=== PATIENT | female | born 1965 | race Caucasian/White ===

== ENCOUNTER 2021-07-05 07:36 | Outpatient (RCR) | payer MEDICARE, BC, SELFPAY ==
--- NOTE | 2021-07-05 08:36 | OTOPEVAL ---
OCCUPATIONAL THERAPY INITIAL EVALUATION 07/05/21 Thank you for referring Narciso Parmar to [facility].? The patient is scheduled to be seen for therapy? 2x/week for 4 weeks. Please review, sign, date and return this plan of care BRENDA. I agree with and certify that the following plan of care is medically necessary. Referring Physician Date Referring Provider: Trevor Bowen, PA *OT Outpatient Evaluation Start: 07/05/21 07:45 Outpatient Past Medical History Past Medical History No Past Medical/Surgical History Patient/Family Denies Significant Past Medical/ Surgical History Evaluation Information Problem Diagnosis Revision right carpal tunnel release, Right thumb CMC arthroplasty Onset 04/17/21 Subjective Information Patient reports very limited Query Text:As Reported By Patient/ right hand use. States she has Family to start her car with the left hand. She states she has pain and weakness that limits her ability to use the right hand for cooking, cleaning, and ADLs. Prior Level of Function Activity Level (Last 3 Months) Occupation Not working right now Hand Dominance Right Activity of Daily Living Ability Independent Indoor/Home Mobility Independent Cooking Yes Cleaning Yes Laundry Yes Shopping Yes Driving Yes Pain Assessment Timing of Pain Assessment Timing of Pain Assessment Assessment Pain Scale Pain Scale Used Numeric (1 - 10) Self Report Pain Assessment Right Hand(s) Reported Pain Level 5 Pain Description Aching Pain Frequency Continuous Lowest Pain Intensity 3 Greatest Pain Intensity 10 Pain Score Pain Score 5: Self Report Interventions Used Interventions Used By Clinicians Education,Exercise Pain Relief Interventions Used By Heat Patient Other Alleviating Interventions Patient uses an scott wrap for pain relief. Upper Extremity Range of Motion Wrist Range of Motion Left Wrist Flexion - Active 60 Wrist Extension - Active 55 Wrist Radial Deviation - Active 25 Wrist Ulnar Deviation - Active 30 Right Wrist Flexion - Active 60 Wrist Extension - Active 50 Wrist Radial Deviation - Active 15 Wrist Ulnar Deviation - Active 30 Finger Range of Motion Left Reason Not Measured WNL/Left R
--- NOTE | 2021-07-09 08:37 | PCOTNOTE ---
Patient did not show up for scheduled appointment this date. Called and left voicemail regarding pt's next appt.
--- NOTE | 2021-07-12 08:33 | PCOTNOTE ---
Patient did not show up for scheduled appointment this date. Called to remind her of her appt on Friday. Also informed her that this is her 2nd no show and that she will be discharged if she does not show on Friday.
--- NOTE | 2021-07-16 08:26 | PCOTNOTE ---
OCCUPATIONAL THERAPY DISCHARGE NOTIFICATION 07/16/21 Patient:Narciso Parmar Date of :1965 Patient has not returned for any further treatments since her initial evaluation on 07/05/2021, therefore she will be discharged at this time. Patient?s initial visit was on 07/05/2021 and she had a total of 0 follow up visits. Multiple attempts to contact the patient have been unsuccessful. The goals have been not addressed. Thank you for referring this patient to [facility]. Please review, sign, date and return this discharge summary BRENDA. I have been updated about the patient's current status and I agree with discharge from the above service at this time. Referring Physician Date Referring Provider: Trevor Bowen, CAROLANN
== END 2021-07-16 17:37 | disposition home or self-care (01) ==
LOC: ANHOT 07:36
PROVIDERS: Visit Provider Physician Assistant
DX: Z47.89 Encounter for other orthopedic aftercare (principal); L03.818 Cellulitis of other sites
CPT/HCPCS: 97018; 97110; 97165

== ENCOUNTER 2023-05-15 15:56 | Outpatient (CLI) | payer MEDICARE, SELFPAY ==
--- NOTE | ~2023-05-15 | XR_ITS ---
EXAMINATION: XR foot RT min 3V DATE: 05/15/2023 16:23 INDICATION: Right foot injury. TECHNIQUE: 4 views of right foot were obtained. COMPARISON: None. FINDINGS: Bone alignment is normal. No fracture. There is mild osteoarthritis of first metatarsophala ngeal joint and some of the interphalangeal joints and midfoot joints. There is an enthesophyte at pl david aspect of calcaneal tuberosity. IMPRESSION: 1. Mild polyarticular osteoarthritis. Reviewed, dictated and finalized at location E.
== END 2023-05-15 15:57 | disposition home or self-care (01) ==
LOC: CHSIMG 16:08
DX: S99.921A Unspecified injury of right foot, initial encounter (principal); M19.071 Primary osteoarthritis, right ankle and foot
CPT/HCPCS: 73630

== ENCOUNTER 2023-05-28 14:33 | Emergency (ER) | payer MEDICARE, SELFPAY ==
[2023-05-28] VITALS (27 sets, daily range): BP systolic 101–127; BP diastolic 58–97; PULSE 63–85; RESP 12–21; TEMP 36.2–37; O2SAT 93–100
--- NOTE | ~2023-05-28 | CT_ITS ---
EXAMINATION: CT abdomen pelvis w con DATE: 05/28/2023 16:42 INDICATION: Epigastric abdominal pain. TECHNIQUE: Computed tomography (CT) of the abdomen and pelvis was performed with 100 mL Omnipaque 350 intravenous contrast. Automated exposure control and iterative reconstruction technique were employe d. The dose-length product was 1064.11 mGy-cm. COMPARISON: CT abdomen 09/29/14 FINDINGS: The visualized portions of the lung bases demonstrate mild atelectasis. A calcified left halle ng nodule is consistent with old granulomatous disease. No pleural effusion. The heart size is normal . No pericardial effusion. The liver is normal. The spleen is absent. The gallbladder is absent. The pancreas is normal. The adrenal glands and kidneys are normal. There are no dilated loops of bowel. T here is diverticulosis of the colon without evidence of diverticulitis. The pancreas is not visualize d. There is mild aortic atherosclerosis. There are surgical changes in the stomach. There are no path ologically enlarged lymph nodes. There is no free intraperitoneal fluid. There is mild thoracic and l umbar spondylosis. IMPRESSION: 1. No etiology for the patient's symptoms. Reviewed, dictated and finalized at location A.
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
--- NOTE | 2023-05-28 15:01 | ECG_ITS ---
Measurements Intervals [place] Rate: 77 P: 48 [place]: 153 QRS: 10 QRSD: 90 T: 29 QT: 377 QTc: 427 Interpretive Statements SINUS RHYTHM MINIMAL Q WAVES- INFERIOR LEADS BORDERLINE ECG NO PREVIOUS ECG AVAILABLE FOR COMPARISON Electronically Signed On 05-28-2023 15:45:00 CDT by Adam Cabezas D.O.
[2023-05-28] MEDS: LACTATED RINGERS 1,000 ML 150 ML IV CONT (15:17)
[2023-05-28] MEDS: HYDROmorphone HCL INJ (*CRX) 2 MG/ML VIAL 0.5 MG IV PUSH ×2 (15:25→18:29)
[2023-05-28] MEDS: ONDANSETRON INJ 4 MG/2 ML VIAL IV PUSH (15:26)
[2023-05-28] MEDS: PANTOPRAZOLE SODIUM IV 40 MG VIAL IV PUSH (15:28)
[2023-05-28 15:29] LABS: Appearance Urine Clear (Clear); Basophils Absolute Auto 0.02 K/mm3 (0.00-0.10); Basophils Percent Auto 0.3 % (0.0-1.0); Bilirubin Urine Negative (Negative); Blood Urine Trace-Intact (Negative); Color Urine Orange (Yellow); Eosinophils Absolute Auto 0.23 K/mm3 (0.02-0.50); Eosinophils Percent Auto 2.9 % (1.0-6.0); Glucose Urine UA Negative (Negative); Hematocrit 32.3 % (35.0-49.0); Hemoglobin 10.2 g/dL (12.0-15.0); Immature Granulocyte Absolute 0.04 K/mm3 (0.00-0.00); Immature Granulocyte Percent A 0.5 % (0.0-0.0); Ketones Urine Negative (Negative); Leukocyte Esterase Ur 2+ LEU/UL (Negative); Lymphocytes Absolute Auto 2.22 K/mm3 (1.10-4.50); Mean Corpuscular HGB Conc 31.6 g/dL (32.0-36.0); Mean Corpuscular Hemoglobin 27.8 pg (27.0-31.0); Mean Platelet Volume 11.7 fl (9.2-11.8); Monocytes Absolute Auto 0.75 K/mm3 (0.10-0.90); Monocytes Percent Auto 9.5 % (2.0-11.0); Neutrophils Absolute Auto 4.7 K/mm3 (1.7-7.2); Neutrophils Percent Auto 58.8 % (50.0-70.0); Nitrate Urine Negative (Negative); Platelet Count Result 301 K/mm3 (150-420); Protein Urine Trace (Negative); Red Blood Count 3.67 M/mm3 (4.20-5.40); Red Cell Distribution Width 16.5 % (11.6-14.4); Specific Grav Ur >= 1.030 (1.010-1.020); Urobilinogen Urine 0.2 mg/dL (0.2-1.0); White Blood Count 7.9 K/mm3 (4.8-10.8); pH Urine 5.5 (5.0-8.0)
[2023-05-28 15:36] LABS: Add Urine Microscopic? YES; Bacteria Urine 2+ /hpf; Renal Epithelial Cells Urine Few /hpf; Squamous Epithelial Cell Urine Few /hpf (Few); WBC Urine 16-20 /hpf (0-3)
[2023-05-28 15:44] LABS: Partial Thromboplastin Time 27.8 SEC (23.90-30.70); Prothrombin Time 10.9 Seconds (9.50-12.10)
[2023-05-28 15:49] LABS: Lactic Acid Reflex 0.4 mmol/L (0.4-2.0)
[2023-05-28 15:58] LABS: Alanine Aminotransferase 15 U/L (14-59); Albumin Level 3.2 g/dL (3.4-5.0); Alkaline Phosphatase 134 U/L (46-116); Anion Gap 9 mmol/L (8-16); Aspartate Amino Transferase 13 U/L (15-37); Bilirubin,Total 0.3 mg/dL (0.00-1.00); Blood Urea Nitrogen 20 mg/dL (7-18); Calcium 8.9 mg/dL (8.5-10.1); Carbon Dioxide 26 mmol/L (21-32); Chloride 106 mmol/L (98-108); Estimated CRCL calculation 99 ml/min; Estimated Glomerular Filt Rate > 60; Glucose 84 mg/dL (70-99); Lipase 22 U/L (16-77); NT Pro B Type Natriuretic Pept 415 pg/mL (0-125); Osmolality Calculated 293 mOsm/kg (285-295); Potassium 3.7 mmol/L (3.5-5.1); Sodium 141 mmol/L (136-145); Total Protein 7.5 g/dL (6.4-8.2)
[2023-05-28 16:00] LABS: Troponin I 174.4 ng/L (0.00-60.4)
--- NOTE | 2023-05-28 18:20 | ECG_ITS ---
Measurements Intervals [place] Rate: 63 P: 62 NE: 150 QRS: 41 QRSD: 88 T: 28 QT: 402 QTc: 413 Interpretive Statements SINUS RHYTHM WITH SINUS ARRHYTHMIA POSSIBLE LEFT ATRIAL ENLARGEMENT BASELINE ARTIFACT- I, II, AVR, AVF, V1 BORDERLINE ECG COMPARED TO ECG 05/28/2023 15:13:07 SINUS ARRHYTHMIA NOW PRESENT Electronically Signed On 05-28-2023 19:46:38 CDT by Adam Cabezas D.O.
[2023-05-28 18:25] LABS: Hematocrit 31.7 % (35.0-49.0); Hemoglobin 9.8 g/dL (12.0-15.0); Mean Corpuscular HGB Conc 30.9 g/dL (32.0-36.0); Mean Corpuscular Hemoglobin 27.5 pg (27.0-31.0); Mean Corpuscular Volume 88.8 fL (78.0-102.0); Mean Platelet Volume 11.9 fl (9.2-11.8); Platelet Count Result 316 K/mm3 (150-420); Red Blood Count 3.57 M/mm3 (4.20-5.40); Red Cell Distribution Width 16.5 % (11.6-14.4); White Blood Count 8.6 K/mm3 (4.8-10.8)
[2023-05-28 18:43] LABS: Troponin I 187.3 ng/L (0.00-60.4)
--- NOTE | 2023-05-28 20:31 | PC.NURSE ---
2030 called to patient room, patient states why are u making me go to [facility] or [facility] I don't want that I want [facility] or [facility] travel writer apologized explained that the patient told him she wanted [facility] why we called when [facility] had no beds. Patient started yelling that travel writer wouldn't listen & was making her go to hospitals that were terrible, travel writer offered to let patient sign out AMA. Significant other asked us to try other facilities and if she could have something for anxiety. 2034 MD went and spoke to patient explained [facility] and [facility] a bed, patient finally agreed for MD to speak to [facility]
[2023-05-28] MEDS: ALPRAZolam (*CRX) 0.5 MG TABLET PO (21:07)
--- NOTE | 2023-05-28 21:22 | PC.NURSE ---
[facility] declined transport for this pt at 2118 to [facility] in [place]. [facility] ambulance service was paged out at this time.
--- NOTE | 2023-05-28 21:51 | PC.NURSE ---
2039 [facility] notified patient did not want to go to their facility
--- NOTE | 2023-05-28 21:52 | PC.NURSE ---
2049 Dr Brink at [facility] accepted pt
--- NOTE | 2023-05-31 12:54 | PC.NURSE ---
Final urine culture report faxed to [facility], Patient transfered and is in room 6616-1. Fax number [phone]
== END 2023-05-28 21:50 | disposition short-term general hospital (02) ==
PROVIDERS: Emergency Provider Internal Medicine Critical Care Medicine
DX: D64.9 Anemia, unspecified (principal); N30.00 Acute cystitis without hematuria; K86.1 Other chronic pancreatitis; R10.13 Epigastric pain; R79.89 Other specified abnormal findings of blood chemistry; I48.91 Unspecified atrial fibrillation; I10 Essential (primary) hypertension; E11.9 Type 2 diabetes mellitus without complications; F17.200 Nicotine dependence, unspecified, uncomplicated; Z79.01 Long term (current) use of anticoagulants; Z79.899 Other long term (current) drug therapy; Z79.891 Long term (current) use of opiate analgesic
CPT/HCPCS: 36415; 74177; 80053; 81001; 83605; 83690; 83735; 83880; 84484; 85025; 85027; 85610; 85730; 87077; 87086; 87088; 87186; 93005; 96361; 96374; 96375; 96376; 99285; A9270; C9113; J1170; J2405; J7120; Q9967

== ENCOUNTER 2023-06-16 18:26 | Outpatient (CLI) | payer MEDICARE, SELFPAY ==
[2023-06-16 18:39] LABS: Appearance Urine Clear (Clear); Bilirubin Urine Negative (Negative); Blood Urine Negative (Negative); Color Urine Yellow (Yellow); Glucose Urine UA Negative (Negative); Ketones Urine Trace (Negative); Leukocyte Esterase Ur 3+ LEU/UL (Negative); Nitrate Urine Positive (Negative); Protein Urine Negative (Negative); Specific Grav Ur 1.015 (1.010-1.020); Urobilinogen Urine 0.2 mg/dL (0.2-1.0)
[2023-06-16 18:49] LABS: Add Urine Microscopic? YES; Bacteria Urine 4+ /hpf; RBC Urine 0-2 /hpf (0-2); Squamous Epithelial Cell Urine Occasional /hpf (Few); WBC Urine >75 /hpf (0-3)
== END 2023-06-16 18:27 | disposition home or self-care (01) ==
LOC: CHSLAB 18:30
DX: R35.0 Frequency of micturition (principal); R39.15 Urgency of urination
CPT/HCPCS: 81001; 87077; 87086; 87088; 87186

== ENCOUNTER 2023-07-22 12:31 | Emergency (ER) | payer MEDICARE, SELFPAY ==
[2023-07-22] VITALS (8 sets, daily range): BP systolic 97–138; BP diastolic 44–77; PULSE 61–94; RESP 17–18; TEMP 36.4–36.7; O2SAT 95–100
--- NOTE | ~2023-07-22 | CT_ITS ---
CT of the Abdomen and Pelvis: Indication: Abdominal pain Technique: 2.5 mm axial scans were obtained through the abdomen and pelvis following intravenous adm inistration of 100 cc of Omnipaque 350. Dose reduction technique was used on this scan by utilizing a utomated exposure control and iterative reconstruction technique. The dose-length product (DLP) was 6 27.11 mGy-cm. COMPARISON: 05/28/2023 Findings: Scans through the lung bases are unremarkable. The liver, pancreas, adrenals and kidneys are within normal limits. Gallbladder is absent. Evidence o f prior splenectomy. There are atherosclerotic calcifications of the aorta. No lymphadenopathy. No bowel obstruction or bowel wall thickening. There is no evidence to suggest acute appendicitis. Images through the pelvis were performed. Urinary bladder unremarkable. No pelvic mass seen. Patient is post hysterectomy. No ascites. Impression: No significant abnormalities seen. Postoperative changes, as above. Reviewed, dictated and finalized at [facility]. ETIC SURVEY DIRECTOR Impression: No significant abnormalities seen. Postoperative changes, as above.
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
[2023-07-22 13:20] LABS: Basophils Absolute Auto 0.02 K/mm3 (0.00-0.10); Basophils Percent Auto 0.2 % (0.0-1.0); Eosinophils Absolute Auto 0.27 K/mm3 (0.02-0.50); Eosinophils Percent Auto 3.3 % (1.0-6.0); Hemoglobin 10.2 g/dL (12.0-15.0); Immature Granulocyte Absolute 0.02 K/mm3 (0.00-0.00); Immature Granulocyte Percent A 0.2 % (0.0-0.0); Lymphocytes Absolute Auto 2.37 K/mm3 (1.10-4.50); Lymphocytes Percent Auto 28.7 % (18.0-42.0); Mean Corpuscular HGB Conc 31.9 g/dL (32.0-36.0); Mean Corpuscular Hemoglobin 27.5 pg (27.0-31.0); Mean Corpuscular Volume 86.3 fL (78.0-102.0); Mean Platelet Volume 11.7 fl (9.2-11.8); Monocytes Absolute Auto 0.64 K/mm3 (0.10-0.90); Monocytes Percent Auto 7.7 % (2.0-11.0); Neutrophils Percent Auto 59.9 % (50.0-70.0); Platelet Count Result 293 K/mm3 (150-420); Red Blood Count 3.71 M/mm3 (4.20-5.40); Red Cell Distribution Width 17.2 % (11.6-14.4); White Blood Count 8.3 K/mm3 (4.8-10.8)
[2023-07-22 13:28] LABS: Appearance Urine Clear (Clear); Bilirubin Urine Negative (Negative); Blood Urine Trace-Intact (Negative); Color Urine Light Yellow (Yellow); Glucose Urine UA Negative (Negative); Ketones Urine Negative (Negative); Leukocyte Esterase Ur 1+ LEU/UL (Negative); Nitrate Urine Negative (Negative); Protein Urine Negative (Negative); Specific Grav Ur >= 1.030 (1.010-1.020)
[2023-07-22 13:31] LABS: Add Urine Microscopic? YES; RBC Urine 0-2 /hpf (0-2)
[2023-07-22 13:32] LABS: Bacteria Urine Trace /hpf; Squamous Epithelial Cell Urine Few /hpf (Few)
[2023-07-22 13:35] LABS: Albumin Level 3.2 g/dL (3.4-5.0); Alkaline Phosphatase 108 U/L (46-116); Anion Gap 13 mmol/L (8-16); Aspartate Amino Transferase < 10 U/L (15-37); Bilirubin,Total 0.3 mg/dL (0.00-1.00); Blood Urea Nitrogen 25 mg/dL (7-18); Carbon Dioxide 23 mmol/L (21-32); Chloride 104 mmol/L (98-108); Estimated Glomerular Filt Rate > 60; Glucose 99 mg/dL (70-99); Lipase 29 U/L (16-77); Osmolality Calculated 294 mOsm/kg (285-295); Potassium 3.8 mmol/L (3.5-5.1); Sodium 140 mmol/L (136-145); Total Protein 7.3 g/dL (6.4-8.2)
[2023-07-22] MEDS: SODIUM CHLORIDE 0.9% IV 1,000 ML 999 ML IV CONT (13:38)
[2023-07-22] MEDS: diphenhydrAMINE HCl INJ 50 MG/ML VIAL IV PUSH (13:39)
[2023-07-22] MEDS: ONDANSETRON INJ 4 MG/2 ML VIAL IV PUSH (13:41)
[2023-07-22] MEDS: METOCLOPRAMIDE HCL INJ 10 MG/2 ML VIAL IV PUSH (13:42)
[2023-07-22] MEDS: HYDROmorphone HCL INJ (*CRX) 2 MG/ML VIAL 0.5 MG IV PUSH (13:44)
[2023-07-22 13:46] LABS: Alanine Aminotransferase 21 U/L (14-59); Calcium 9.2 mg/dL (8.5-10.1)
--- NOTE | 2023-07-22 14:59 | PC.NURSE ---
Patient is calling a family friend for a ride home.
--- NOTE | 2023-07-22 15:01 | PC.NURSE ---
Patient unable to find ride, patient will need to stay until 1550 due to pain medication administration. After that patient will be safe to go home per ERP
--- NOTE | 2023-07-25 18:45 | PC.NURSE ---
dr yanez reviewed urine culture. attempted to call patient to check condition , unsuccessful. no changes at this time per dr yanez
== END 2023-07-22 15:50 | disposition home or self-care (01) ==
PROVIDERS: Emergency Provider Emergency Medicine
DX: R10.11 Right upper quadrant pain (principal); F17.200 Nicotine dependence, unspecified, uncomplicated; Z79.01 Long term (current) use of anticoagulants; Z79.899 Other long term (current) drug therapy; Z79.891 Long term (current) use of opiate analgesic
CPT/HCPCS: 36415; 74177; 80053; 81001; 83690; 85025; 87077; 87086; 87088; 87186; 96361; 96374; 96375; 99284; J1170; J1200; J2405; J2765; J7030; Q9967

== ENCOUNTER 2024-05-27 15:25 | Observation (INO) | payer MEDICARE, SELFPAY ==
[2024-05-27] VITALS (14 sets, daily range): BP systolic 107–151; BP diastolic 59–89; PULSE 72–97; RESP 15–25; TEMP 36.6–36.8; O2SAT 97–100; BMI 29.2
--- NOTE | ~2024-05-27 | CT_ITS ---
EXAMINATION: CT abdomen pelvis w con DATE: 05/27/2024 17:06 INDICATION: Abdominal pain. TECHNIQUE: Computed tomography (CT) of the abdomen and pelvis was performed with 100 mL Omnipaque 350 intravenous contrast. Automated exposure control and iterative reconstruction technique were employe d. The dose-length product was 1214.27 mGy-cm. COMPARISON: CT abdomen and pelvis 07/22/2023 FINDINGS: The visualized portions of the lung bases demonstrate mild atelectasis. There is a pneumato catie in lingula. A calcified left lung nodule is consistent with old granulomatous disease. No pleura l effusion. The heart size is normal. No pericardial effusion. There are surgical changes of the stom ach. The liver is normal. The gallbladder and spleen are absent. The pancreas, adrenal glands, and ki dneys are normal. There is diverticulosis of the colon without evidence of diverticulitis. There are no dilated loops of bowel. The appendix is not visualized. There are no pathologically enlarged lymph nodes. There is no free intraperitoneal fluid. There is mild thoracic and lumbar spondylosis. IMPRESSION: 1. No etiology for the patient's symptoms. Reviewed, dictated and finalized at location A.
--- NOTE | ~2024-05-27 | XR_ITS ---
EXAMINATION: XR chest 1V portable DATE: 05/27/2024 16:15 INDICATION: Shortness of breath. Altered mental status. TECHNIQUE: A single frontal view of the chest was obtained. COMPARISON: None. FINDINGS: A calcified left lung nodule and calcified left hilar lymph nodes are consistent with old g ranulomatous disease. No pleural effusion or pneumothorax. The heart size is normal. IMPRESSION: 1. No acute cardiopulmonary disease. Reviewed, dictated and finalized at location A.
--- NOTE | ~2024-05-27 | CT_ITS ---
EXAMINATION: CT brain wo con DATE: 05/27/2024 17:06 INDICATION: Altered mental status. TECHNIQUE: Computed tomography (CT) of the head was performed without intravenous contrast. The mA wa s adjusted according to patient size. Iterative reconstruction technique was employed. The dose-lengt h product was 681.00 mGy-cm. COMPARISON: None FINDINGS: There is no intracranial hemorrhage, acute infarction, or abnormal intracranial mass lesion . The ventricles are normal in size. There are likely changes of ocular lens replacement surgeries. T here is mild mucosal thickening in left maxillary sinus. The mastoid air cells are normal. IMPRESSION: 1. Normal brain. Reviewed, dictated and finalized at location A. IMPRESSION: 1. Normal brain.
--- NOTE | 2024-05-27 15:48 | ECG_ITS ---
Test Date: 2024-05-27 15:41:11 Measurements Intervals [place] Rate: 77 P: 26 NV: 140 QRS: 55 QRSD: 93 T: 46 QT: 382 QTc: 432 Interpretive Statements SINUS RHYTHM BASELINE ARTIFACT- III, AVL NORMAL ECG No previous ECG available for comparison Electronically Signed On 05-27-2024 15:51:47 CDT by Adam Cabezas D.O.
[2024-05-27 15:50] LABS: Glucose Point of Care 76 mg/dl (65-105)
[2024-05-27] MEDS: ONDANSETRON INJ 4 MG/2 ML VIAL IV PUSH ×2 (16:04→17:16)
[2024-05-27] MEDS: SODIUM CHLORIDE 0.9% IV 1,000 ML 999 ML IV CONT (16:04)
[2024-05-27 16:18] LABS: Basophils Absolute Auto 0.02 K/mm3 (0.00-0.10); Basophils Percent Auto 0.2 % (0.0-1.0); Eosinophils Absolute Auto 0.16 K/mm3 (0.02-0.50); Eosinophils Percent Auto 1.3 % (1.0-6.0); Hematocrit 39.6 % (35.0-49.0); Immature Granulocyte Absolute 0.05 K/mm3 (0.00-0.00); Immature Granulocyte Percent A 0.4 % (0.0-0.0); Lymphocytes Absolute Auto 2.89 K/mm3 (1.10-4.50); Lymphocytes Percent Auto 23.4 % (18.0-42.0); Mean Corpuscular HGB Conc 32.8 g/dL (32-36); Mean Corpuscular Hemoglobin 30.4 pg (27.0-31.0); Mean Corpuscular Volume 92.7 fL (78.0-102.0); Mean Platelet Volume 12.1 fl (9.2-11.8); Monocytes Absolute Auto 1.15 K/mm3 (0.10-0.90); Monocytes Percent Auto 9.3 % (2.0-11.0); Neutrophils Absolute Auto 8.06 K/mm3 (1.70-7.20); Neutrophils Percent Auto 65.4 % (50.0-70.0); Platelet Count Result 228 K/mm3 (150-420); Red Blood Count 4.27 M/mm3 (4.20-5.40); Red Cell Distribution Width 14.3 % (11.6-14.4); White Blood Count 12.3 K/mm3 (4.8-10.8)
[2024-05-27 16:32] LABS: Lactic Acid Reflex 3.5 mmol/L (0.4-2.0)
[2024-05-27 16:34] LABS: INR 0.9; Prothrombin Time 10.3 Seconds (9.50-12.1)
[2024-05-27 16:41] LABS: Alanine Aminotransferase 26 U/L (14-59); Albumin Level 3.8 g/dL (3.4-5.0); Alkaline Phosphatase 110 U/L (46-116); Amphetamine Screen Urine Negative (Negative); Anion Gap 12 mmol/L (4-12); Aspartate Amino Transferase 17 U/L (15-37); Barbiturate Screen Urine Negative (Negative); Benzodiazepines Screen Urine Negative (Negative); Bilirubin,Total 0.5 mg/dL (0.00-1.00); Blood Urea Nitrogen 19 mg/dL (7-18); CRP 0.6 mg/dL (0.0-0.9); Calcium 9.1 mg/dL (8.5-10.1); Cannabinoid Screen Urine Negative (Negative); Carbon Dioxide 24 mmol/L (21-32); Chloride 103 mmol/L (98-108); Cocaine Screen Urine Negative (Negative); Estimated CRCL calculation 72 ml/min; Estimated Glomerular Filt Rate > 60; Glucose 88 mg/dL (70-99); Lipase 52 U/L (16-77); Methadone Screen Urine Negative (Negative); Opiate Screen Urine Negative (Negative); Osmolality Calculated 289 mOsm/kg (285-295); Phencyclidine Screen Urine Negative (Negative); Potassium 3.4 mmol/L (3.5-5.1); Sodium 139 mmol/L (136-145); Total Protein 8.1 g/dL (6.4-8.2)
[2024-05-27 16:43] LABS: Ethanol < 3 mg/dL (0-6); Troponin I < 4.0 ng/L (0.00-60.4)
[2024-05-27 16:44] LABS: Appearance Urine Cloudy (Clear); Color Urine Yellow (Yellow); Glucose Urine UA Negative (Negative); Protein Urine Negative (Negative)
[2024-05-27 16:45] LABS: Add Urine Microscopic? YES; Bacteria Urine 3+ /hpf; Bilirubin Urine Negative (Negative); Blood Urine Negative (Negative); Ketones Urine Negative (Negative); Leukocyte Esterase Ur Trace LEU/UL (Negative); Nitrate Urine Positive (Negative); RBC Urine None seen /hpf (0-2); Squamous Epithelial Cell Urine Few /hpf (Few); Urobilinogen Urine Negative mg/dL (0.2-1.0)
[2024-05-27 16:54] LABS: SARS-CoV-2 RNA PCR Negative (Negative)
[2024-05-27 16:56] LABS: Influenza A QL RT-PCR Negative (Negative); Influenza B QL RT-PCR Negative (Negative); RSV RNA, RT-PCR Negative (Negative)
[2024-05-27 17:21] LABS: HCO3 ABG 19.2 mmol/L (23-29); Oxygen Content ABG 16.4 %vol (16.0-22.0); Oxygen Saturation ABG 96.4 % (95-97); Oxyhemoglobin 95.9 % (94-100); PCO2 ABG 29.4 mmHg (35-45); PO2 ABG 90.6 mmHg (80-90); pH ABG 7.43 (7.35-7.45)
[2024-05-27 17:22] LABS: Site Drawn LEFT RADIAL
[2024-05-27 17:23] LABS: Device ROOM AIR; Modified Allen's Test Pass
--- NOTE | 2024-05-27 17:28 | ED.AMS ---
HPI - Altered Mental Status General Chief Complaint: Altered Mental Status Stated Complaint: dont feel well Source: patient and family Mode of arrival: wheelchair Limitations: no limitations History of Present Illness HPI narrative: this is a 59-year-old female with a history of chronic pancreatitis history of migraines COPD presents with some confusion and some feeling fatigued, does have some nausea with no vomiting denies abdominal pain no chest pain or shortness of breath no fever chills. Patient with no dysuria no frequency no hematuria, there is no flank pain, and does complain of a mild headache. MD complaint: confusion Onset (ago): hour(s) Severity: moderate Consistency of symptoms: waxing and waning Related Data Home Medications Medication Instructions Recorded Confirmed apixaban 5 mg tablet (Eliquis) 5 mg PO BID 05/28/23 05/27/24 buspirone 15 mg tablet 15 mg PO TID 05/28/23 05/27/24 colestipol 1 gram tablet 1 g PO BID 05/28/23 05/27/24 cyanocobalamin (vitamin B-12) See Rx Instructions .Route .COMPLEX 05/28/23 05/27/24 1,000 mcg/mL injection solution cyclosporine 0.05 % eye drops in a 1 drp EACH EYE BID 05/28/23 05/27/24 dropperette (Restasis) erenumab-aooe 70 mg/mL See Rx Instructions .Route .COMPLEX 05/28/23 07/22/23 subcutaneous auto-injector (Aimovig Autoinjector) famotidine 40 mg tablet 40 mg PO DAILY 05/28/23 05/27/24 fluoxetine 40 mg capsule 40 mg PO DAILY 05/28/23 05/27/24 fluticasone fur. 100 mcg-umeclid 1 inh inhalation DAILY 05/28/23 05/27/24 62.5 mcg-vilant 25 mcg inhalat.powder (Trelegy Ellipta) furosemide 40 mg tablet 40 mg PO DAILY 05/28/23 05/27/24 levothyroxine 50 mcg tablet 50 mcg PO DAILY 05/28/23 05/27/24 [id number] See Rx Instructions .Route .COMPLEX 05/28/23 05/27/24 36,000-114,000-180,000 unit capsule,delay rel (Creon) modafinil 200 mg tablet 200 mg PO DAILY 05/28/23 05/27/24 montelukast 10 mg tablet 10 mg PO QHS 05/28/23 05/27/24 oxybutynin chloride 10 mg 10 mg PO DAILY 05/28/23 05/27/24 tablet,extended release 24 hr oxycodone-acetaminophen 10 mg-325 1 tablet PO BID 05/28/23 05/27/24 mg tablet pantoprazole 40 mg tablet,delayed 40 mg PO BID 05/28/23 05/27/24 release rimegepant 75 mg disintegrating See Rx Instructions .Route .COMPLEX 05/28/23 05/27/24 [facility] ropinirole 2 mg tablet 2 mg PO DAILY 05/28/23 05/27/24 sumatriptan succinate 100 mg tablet 100 mg PO DAILY PRN Pain 05/28/23 05/27/24 tizanidine 4 mg capsule 4 mg PO BID 05/28/23 05/27/24 trazodone 50 mg tablet 50 mg PO BID 05/28/23 05/27/24 sucralfate 100 mg/mL oral 10 ml PO QID 07/22/23 05/27/24 suspension albuterol sulfate 90 mcg/actuation 1 puff inhalation Q6-8H 05/27/24 05/27/24 aerosol inhaler bisacodyl 5 mg tablet 5 mg PO HS 05/27/24 05/27/24 dicyclomine 20 mg tablet 20 mg PO QID PRN Abdominal Pain 05/27/24 05/27/24 fluticasone propionate 50 2 spray intranasal DAILY 05/27/24 05/27/24 mcg/actuation nasal spray,suspension hydroxychloroquine 200 mg tablet 200 mg PO DAILY 05/27/24 05/27/24 magnesium oxide 250 mg PO DAILY 05/27/24 05/27/24 naloxone 4 mg/actuation nasal 4 mg intranasal Q2-3M PRN overdose 05/27/24 05/27/24 spray (Narcan) stanolone (bulk) 100 % powder 1 ea miscellaneous DAILY PRN 05/27/24 05/27/24 Headache Allergies Allergy/AdvReac Type Severity Reaction Status Date / Time pregabalin Allergy Severe Anaphylaxis Verified 07/22/23 13:23 chlorhexidine Allergy Unknown Unknown Verified 05/28/23 14:46 exenatide Allergy Unknown Unknown Verified 05/28/23 14:46 sulfamethizole Allergy Unknown Unknown Verified 05/28/23 14:46 trimethoprim Allergy Unknown Unknown Verified 05/28/23 14:46 adhesive tape Allergy Rash Verified 07/22/23 13:23 duloxetine Allergy Anaphylaxis Verified 07/22/23 13:23 latex Allergy Rash Verified 07/22/23 13:23 metformin Allergy Diarrhea Verified 07/22/23 13:23 sulfamethoxazole Allergy Unknown Verified 07/22/23 13:23 [From Sulfametho
[2024-05-27] MEDS: levoFLOXacin 500 MG/D5W 100 ML 500 MG/100 ML BAG 100 MG IVPB (17:40)
--- NOTE | 2024-05-27 18:20 | ADMGEN ---
This patient, Narciso Parmar, was admitted to 2nd Floor Room 210-1. Patient/family oriented to hospital policies and general routines including ID bracelet, bed and alarms, visiting hours, pain management, procedures, bathroom and other care routines, personal items, smoking policy, room service/diet, and visiting hours. Information on how to activate the Rapid Response Team has been discussed. Patient/Family are encouraged to report perceived risks to care and to ask questions if they do not understand what they are told or what they should do.
[2024-05-27 18:40] LABS: Reflex Lactic Acid Yes or No No Lactic Reflex
[2024-05-27] MEDS: SUMAtriptan SUCCINATE 25 MG TABLET 100 MG PO (19:22)
[2024-05-27] MEDS: SODIUM CHLORIDE 0.9% IV 1,000 ML 100 ML IV CONT (19:23)
[2024-05-27] MEDS: MONTELUKAST SODIUM 10 MG TABLET PO (20:19)
[2024-05-27] MEDS: BISACODYL 5 MG TABLET EC PO (20:19)
[2024-05-27] MEDS: oxyCODONE/ACETAMINOPHEN (*CRX) 5-325 MG TABLET 1 TABLET PO (20:25)
[2024-05-28] VITALS: BP 115/63; PULSE 71; RESP 16; TEMP 36.7; O2SAT 98
[2024-05-28] MEDS: SODIUM CHLORIDE 0.9% IV 1,000 ML 100 ML IV CONT (05:26)
[2024-05-28] MEDS: LEVOTHYROXINE SODIUM 50 MCG TABLET PO (05:42)
[2024-05-28] MEDS: oxyCODONE/ACETAMINOPHEN (*CRX) 5-325 MG TABLET 1 TABLET PO (05:42)
[2024-05-28 07:14] LABS: Basophils Absolute Auto 0.02 K/mm3 (0.00-0.10); Basophils Percent Auto 0.3 % (0.0-1.0); Eosinophils Absolute Auto 0.15 K/mm3 (0.02-0.50); Hematocrit 37.2 % (35.0-49.0); Hemoglobin 12.1 g/dL (12.0-15.0); Immature Granulocyte Absolute 0.03 K/mm3 (0.00-0.00); Immature Granulocyte Percent A 0.4 % (0.0-0.0); Lymphocytes Absolute Auto 2.07 K/mm3 (1.10-4.50); Lymphocytes Percent Auto 27.3 % (18.0-42.0); Mean Corpuscular HGB Conc 32.5 g/dL (32-36); Mean Corpuscular Hemoglobin 30.6 pg (27.0-31.0); Mean Corpuscular Volume 93.9 fL (78.0-102.0); Mean Platelet Volume 11.7 fl (9.2-11.8); Monocytes Absolute Auto 0.84 K/mm3 (0.10-0.90); Monocytes Percent Auto 11.1 % (2.0-11.0); Neutrophils Absolute Auto 4.47 K/mm3 (1.70-7.20); Neutrophils Percent Auto 58.9 % (50.0-70.0); Platelet Count Result 226 K/mm3 (150-420); Red Blood Count 3.96 M/mm3 (4.20-5.40); Red Cell Distribution Width 14.4 % (11.6-14.4); White Blood Count 7.6 K/mm3 (4.8-10.8)
[2024-05-28 07:33] LABS: Lactic Acid Reflex 1.3 mmol/L (0.4-2.0)
[2024-05-28 07:39] LABS: Alanine Aminotransferase 21 U/L (14-59); Albumin Level 2.8 g/dL (3.4-5.0); Alkaline Phosphatase 99 U/L (46-116); Anion Gap 5 mmol/L (4-12); Aspartate Amino Transferase 18 U/L (15-37); Bilirubin,Total 0.4 mg/dL (0.00-1.00); Blood Urea Nitrogen 14 mg/dL (7-18); Carbon Dioxide 28 mmol/L (21-32); Chloride 108 mmol/L (98-108); Estimated CRCL calculation 96 ml/min; Estimated Glomerular Filt Rate > 60; Glucose 94 mg/dL (70-99); Osmolality Calculated 292 mOsm/kg (285-295); Potassium 4.2 mmol/L (3.5-5.1); Sodium 141 mmol/L (136-145); Total Protein 6.6 g/dL (6.4-8.2)
[2024-05-28 08:00] VITALS: BP 106/64; PULSE 70; RESP 14; TEMP 36.1; O2SAT 96
[2024-05-28] MEDS: LIPASE/AMYLASE/PROTEASE 12,000 UNITS CAP 1 CAP PO (08:08)
[2024-05-28] MEDS: MAGNESIUM OXIDE 400 MG TABLET PO (08:41)
[2024-05-28] MEDS: busPIRone HCL 5 MG TABLET 15 MG PO ×2 (08:41→13:59)
[2024-05-28] MEDS: rOPINIRole HCL 1 MG TABLET 2 MG PO (08:41)
[2024-05-28] MEDS: APIXABAN 2.5 MG TABLET 5 MG PO (08:41)
[2024-05-28] MEDS: traZODone HCL 50 MG TABLET PO (08:41)
[2024-05-28] MEDS: TIZANIDINE HCL 4 MG TABLET PO (08:41)
[2024-05-28] MEDS: FLUoxetine HCL 20 MG CAPSULE 40 MG PO (08:42)
[2024-05-28] MEDS: FAMOTIDINE 20 MG TABLET 40 MG PO (08:42)
[2024-05-28] MEDS: oxyBUTYnin CHLORIDE XL 5 MG TAB.ER.24 10 MG PO (08:42)
[2024-05-28] MEDS: PANTOPRAZOLE 40 MG TABLET PO (08:43)
[2024-05-28] MEDS: HYDROXYCHLOROQUINE SULFATE 200 MG TABLET PO (08:43)
[2024-05-28] MEDS: DICYCLOMINE HCL 10 MG CAPSULE 20 MG PO (08:44)
[2024-05-28] MEDS: modafiniL (*CRX) 100 MG TABLET 200 MG PO (08:45)
[2024-05-28] MEDS: FLUTICASONE PROPIONATE 0.05% NA SPR 16 GM BTL (*BKC) 2 SPRAY NASAL (08:53)
[2024-05-28] MEDS: SUMAtriptan SUCCINATE 25 MG TABLET 100 MG PO (09:00)
[2024-05-28] MEDS: cefTRIAXone 2 GM/NS 100 ML 2 GM/100 ML BAG IVPB (10:25)
[2024-05-28] MEDS: METOCLOPRAMIDE HCL INJ 10 MG/2 ML VIAL IV PUSH (11:09)
[2024-05-28] MEDS: LIPASE/AMYLASE/PROTEASE 12,000 UNITS CAP 6 CAP PO (12:10)
--- NOTE | 2024-05-28 12:50 | PM.SD2 ---
Same Day Admit/Disch: HPI History of Present Illness Chief complaint: UTI Narrative: Narciso Parmar is a 59 year old female HPI narrative: this is a 59-year-old female with a history of chronic pancreatitis history of migraines COPD presents with some confusion and some feeling fatigued, does have some nausea with no vomiting denies abdominal pain no chest pain or shortness of breath no fever chills. Patient with no dysuria no frequency no hematuria, there is no flank pain, and does complain of a mild headache. MD complaint: confusion Onset (ago): hour(s) Severity: moderate Consistency of symptoms: waxing and waning PMFSH Past Medical History Medical History Afib Family History Family History Mother Family history of heart disease in male family member before age 55 Social History Social History Smoking packs per day: 3.5 Smoking cigarettes per day: 70.0 Years smoked: 25 Smoking pack-years: 87.50 Smoking status: Former smoker Tobacco type: cigarettes Alcohol intake: never Substance use: never Substance use type: does not use Do You Feel Safe in your Home?: Yes Lack of Transportation: No Lack of Food: Never True Current Housing: I Have Housing Concerned About Future Housing: No Difficulty Paying Gas/Electric Bills: No Difficulty Paying for Meds: No Currently Unemployed: No Education: High School Diploma/GED Difficulty w/ Childcare or Family Care: No Spiritual care concerns: No Same Day Admit/Disch: Med Pre-admit Medications Home Medications Medication Instructions Recorded Confirmed Type apixaban 5 mg tablet (Eliquis) 5 mg PO BID 05/28/23 05/27/24 History buspirone 15 mg tablet 15 mg PO TID 05/28/23 05/27/24 History cyanocobalamin (vitamin B-12) See Rx Instructions .Route .COMPLEX 05/28/23 05/27/24 History 1,000 mcg/mL injection solution cyclosporine 0.05 % eye drops in a 1 drp EACH EYE BID 05/28/23 05/27/24 History dropperette (Restasis) erenumab-aooe 70 mg/mL See Rx Instructions .Route .COMPLEX 05/28/23 05/28/24 History subcutaneous auto-injector (Aimovig Autoinjector) famotidine 40 mg tablet 40 mg PO DAILY 05/28/23 05/27/24 History fluoxetine 40 mg capsule 40 mg PO DAILY 05/28/23 05/27/24 History furosemide 40 mg tablet 40 mg PO DAILY 05/28/23 05/27/24 History levothyroxine 50 mcg tablet 50 mcg PO DAILY 05/28/23 05/27/24 History rwdzus-[id number]-[id number] See Rx Instructions .Route .COMPLEX 05/28/23 05/27/24 History 36,000-114,000-180,000 unit capsule,delay rel (Creon) montelukast 10 mg tablet 10 mg PO QHS 05/28/23 05/27/24 History oxybutynin chloride 10 mg 10 mg PO DAILY 05/28/23 05/27/24 History tablet,extended release 24 hr oxycodone-acetaminophen 10 mg-325 1 tablet PO BID 05/28/23 05/27/24 History mg tablet pantoprazole 40 mg tablet,delayed 40 mg PO BID 05/28/23 05/27/24 History release rimegepant 75 mg disintegrating See Rx Instructions .Route .COMPLEX 05/28/23 05/27/24 History tablet (Nurtec ODT) ropinirole 2 mg tablet 2 mg PO DAILY 05/28/23 05/27/24 History sumatriptan succinate 100 mg tablet 100 mg PO DAILY PRN Pain 05/28/23 05/27/24 History tizanidine 4 mg capsule 4 mg PO BID 05/28/23 05/27/24 History trazodone 50 mg tablet 50 mg PO BID 05/28/23 05/27/24 History sucralfate 100 mg/mL oral 10 ml PO QID 07/22/23 05/27/24 History suspension albuterol sulfate 90 mcg/actuation 1 puff inhalation Q6-8H 05/27/24 05/27/24 History aerosol inhaler bisacodyl 5 mg tablet 5 mg PO HS 05/27/24 05/27/24 History dicyclomine 20 mg tablet 20 mg PO QID PRN Abdominal Pain 05/27/24 05/27/24 History fluticasone propionate 50 2 spray intranasal DAILY 05/27/24 05/27/24 History mcg/actuation nasal spray,suspension hydroxychloroquine 200 mg tablet 200 mg PO DAILY 05/27/24 05/27/24
--- NOTE | 2024-05-28 14:30 | PC.NURSE ---
Pt discharged to home with family care. Discharge instructions given to pt. Medication instructions given for new medications , Purpose , dosage, times and side effects. Current medications reviewed. Pt taken to family car via WC.
--- NOTE | 2024-05-31 11:04 | PC.NURSE ---
Discharge call back attempted, no answer
--- NOTE | 2024-06-01 11:56 | PC.NURSE ---
discharge call back completed, still having headaches, no questions regarding dc instructions
== END 2024-05-28 14:20 | disposition home or self-care (01) ==
LOC: CHSED 17:37 → CHS2ND 17:49
PROVIDERS: Admitting Provider Internal Medicine; Emergency Provider Emergency Medicine; Visit Provider Internal Medicine
DX: N30.00 Acute cystitis without hematuria (principal); J44.9 Chronic obstructive pulmonary disease, unspecified; I48.91 Unspecified atrial fibrillation; Z79.01 Long term (current) use of anticoagulants; Z79.51 Long term (current) use of inhaled steroids; Z79.891 Long term (current) use of opiate analgesic; F17.210 Nicotine dependence, cigarettes, uncomplicated; Z20.822 Contact with and (suspected) exposure to COVID-19
CPT/HCPCS: 36415; 36600; 70450; 71045; 74177; 80053; 80307; 81001; 82805; 82810; 82948; 83605; 83690; 84484; 85025; 85380; 85610; 86140; 87040; 87077; 87086; 87088; 87186; 87637; 93005; 96361; 96365; 96367; 96375; 99285; A9270; G0378; J0696; J1956; J2405; J2765; J7030; Q9967